=== PATIENT | female | born 2000 | race African-American/Black ===

== ENCOUNTER 2025-07-30 10:01 | Emergency (ER) | payer OTHER, SELFPAY ==
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
[2025-07-30 10:13] VITALS: BP 142/84; PULSE 82; RESP 18; TEMP 36.2; O2SAT 100
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
== END 2025-07-30 12:58 | disposition home or self-care (01) ==
PROVIDERS: Emergency Provider Physician Assistant
DX: S49.92XA Unspecified injury of left shoulder and upper arm, initial encounter (principal); S49.91XA Unspecified injury of right shoulder and upper arm, initial encounter; S69.91XA Unspecified injury of right wrist, hand and finger(s), initial encounter; S59.912A Unspecified injury of left forearm, initial encounter; V43.52XA Car driver injured in collision with other type car in traffic accident, initial encounter
CPT/HCPCS: 72125; 73030; 73090; 73110; 99284